=== PATIENT | male | born 1940 | race Caucasian/White ===

== ENCOUNTER 2019-05-13 17:42 | Emergency (ER) | payer OTHER ==
[~2019-05-13] VITALS: Ht 180.3 cm; Wt 81.8 kg
[2019-05-13 17:43] VITALS: Ht 180.3 cm; Wt 81.8 kg
[2019-05-13] MEDS ORDERED: B 6 PO (17:45)
[2019-05-13] MEDS ORDERED: CENTRUM MEN'S1 EACH PO (17:46)
[2019-05-13] MEDS ORDERED: ACETAMINOPHEN325 MG PO (17:48)
[2019-05-13 20:36] VITALS: BP 124/87
== END 2019-05-13 20:36 | disposition home or self-care (01) ==
LOC: D.ER 17:42
DX: M25.561 Pain in right knee (principal)